=== PATIENT | male | born 1990 | race Two or more races ===

== ENCOUNTER 2022-11-30 13:33 | Emergency (ER) | payer MEDICAID, OTHER ==
[~2022-11-30] VITALS: Ht 162.6 cm; Wt 104.6 kg
[2022-11-30 14:39] LABS: Basophils # (auto) 0 10 ^3/uL (0-0.2); Basophils % (auto) 0.2 % (0.0-2.0); Eosinophils # (auto) 0 10 ^3/uL (0-0.8); Hematocrit 46.1 % (41.0-53.0); Hemoglobin 15.1 g/dL (13.5-17.5); Lymphocytes # (auto) 1.9 10 ^3/uL (0.4-5.4); Lymphocytes % (auto) 18.6 % (10.0-50.0); Mean Corpuscular Hemoglobin 27.5 pg (28.0-32.0); Mean Corpuscular Hgb Conc. 32.8 g/dL (32.0-36.0); Mean Corpuscular Volume 83.9 fL (80.0-100.0); Monocytes # (auto) 0.4 10 ^3/uL (0-1.3); Monocytes % (auto) 4.1 % (0.0-12.0); Neutrophils # (auto) 7.9 10 ^3/uL (1.6-8.6); Neutrophils % (auto) 77.1 % (37.0-80.0); Nucleated Red Blood Cells % 0.2 %; Red Blood Cells 5.49 10^6/uL (4.5-5.90); Red Cell Distribution Width 13.6 % (11.8-14.3); White Blood Cell 10.2 10^3/uL (4.4-10.8)
[2022-11-30 14:49] LABS: Anion Gap 6 (5-15); BUN/Creatinine Ratio 11.3; Blood Alcohol < 3.0 mg/dL (0-5); Blood Urea Nitrogen 11 mg/dL (7-18); Calcium 8.7 mg/dL (8.5-10.1); Carbon Dioxide 26 mmol/L (21-32); Chloride 107 mmol/L (98-107); GFR African American 115 mL/min; GFR Non-African American 95 mL/min; Glucose 174 mg/dL (74-106); Potassium 3.7 mmol/L (3.5-5.1); Sodium 139 mmol/L (136-145)
[2022-11-30 14:50] LABS: Salicylate < 1.7 mg/dL (2.8-20.0)
[2022-11-30 15:06] LABS: Acetaminophen < 2.0 ug/mL (10-30)
[2022-11-30 15:55] LABS: Amphetamine Screen, Urine NEGATIVE (NEGATIVE); Benzodiazephine Screen, Urine NEGATIVE (NEGATIVE); Cannabinoid Screen, Urine NEGATIVE (NEGATIVE); Cocaine Screen, Urine NEGATIVE (NEGATIVE); Opiate Scree,Urine NEGATIVE (NEGATIVE); Phencyclidine Screen, Urine NEGATIVE (NEGATIVE)
[2022-11-30 15:57] LABS: Barbiturate Scree,Urine NEGATIVE (NEGATIVE)
[2022-11-30] MEDS ORDERED: LORazepam 0.5 MG TAB PO ONE (18:00)
[2022-11-30] MEDS ORDERED: risperiDONE 1 MG TAB PO ONE (21:45)
[2022-11-30] MEDS: risperiDONE 1 MG TAB PO SCH (22:27)
[2022-12-01] MEDS: risperiDONE 1 MG TAB PO SCH ×2 (09:50→22:49)
[2022-12-01] MEDS ORDERED: LORazepam 2MG/ML-1ML VIAL IM ONE (18:00)
[2022-12-02] MEDS: risperiDONE 1 MG TAB PO SCH (10:31)
[2022-12-02 14:53] VITALS: BP 113/70
== END 2022-12-02 15:05 ==
LOC: ER 13:33
DX: F20.9 Schizophrenia, unspecified (principal); E78.5 Hyperlipidemia, unspecified; Z20.822 Contact with and (suspected) exposure to COVID-19
CPT/HCPCS: 36415; 80048; 80307; 80320; 80329; 85025; 87426; 96372; 99285; J2060

== ENCOUNTER 2023-01-12 19:05 | Emergency (ER) | payer MEDICAID ==
[~2023-01-12] VITALS: Ht 167.6 cm; Wt 104.0 kg
[2023-01-12 20:09] LABS: Basophils # (auto) 0 10 ^3/uL (0-0.2); Basophils % (auto) 0.2 % (0.0-2.0); Eosinophils # (auto) 0 10 ^3/uL (0-0.8); Hemoglobin 15.2 g/dL (13.5-17.5); Lymphocytes # (auto) 1.9 10 ^3/uL (0.4-5.4); Mean Corpuscular Hemoglobin 28.5 pg (28.0-32.0); Mean Corpuscular Hgb Conc. 34.5 g/dL (32.0-36.0); Mean Corpuscular Volume 82.7 fL (80.0-100.0); Monocytes # (auto) 0.4 10 ^3/uL (0-1.3); Monocytes % (auto) 3.8 % (0.0-12.0); Neutrophils # (auto) 6.8 10 ^3/uL (1.6-8.6); Nucleated Red Blood Cells % 0.3 %; Red Blood Cells 5.33 10^6/uL (4.5-5.90); Red Cell Distribution Width 13.6 % (11.8-14.3); White Blood Cell 9.1 10^3/uL (4.4-10.8)
[2023-01-12 20:29] LABS: Albumin 3.9 g/dL (3.4-5.0); BUN/Creatinine Ratio 14.7; Calcium 9.1 mg/dL (8.5-10.1); Potassium 3.5 mmol/L (3.5-5.1)
[2023-01-12 20:31] LABS: Bilirubin, Total 0.3 mg/dL (0.2-1.0); Total Protein 7.2 g/dL (6.4-8.2)
[2023-01-12 21:28] LABS: Urine Bacteria NONE SEEN /hpf (None Seen); Urine Blood Negative /uL (Negative); Urine Specific Gravity 1.015 (1.001-1.035); Urine WBC <1 /hpf (0 - 3)
[2023-01-12 22:47] LABS: Amphetamine Screen, Urine NEGATIVE (NEGATIVE); Barbiturate Scree,Urine NEGATIVE (NEGATIVE); Benzodiazephine Screen, Urine NEGATIVE (NEGATIVE); Cannabinoid Screen, Urine NEGATIVE (NEGATIVE); Cocaine Screen, Urine NEGATIVE (NEGATIVE); Opiate Scree,Urine NEGATIVE (NEGATIVE); Phencyclidine Screen, Urine NEGATIVE (NEGATIVE)
[2023-01-13] MEDS ORDERED: OLANZapine 5 MG TAB PO ONE (03:45)
[2023-01-13] MEDS ORDERED: LORazepam 2MG/ML-1ML VIAL IM ONE (07:45)
[2023-01-13] MEDS: busPIRone HCL 10 MG TAB PO SCH ×2 (14:03→21:20)
[2023-01-13] MEDS ORDERED: LORazepam 0.5 MG TAB PO ONE (17:45)
[2023-01-13] MEDS: OLANZapine 5 MG TAB PO SCH (21:21)
[2023-01-14] MEDS: busPIRone HCL 10 MG TAB PO SCH ×3 (05:50→22:19)
[2023-01-14] MEDS: SERTRALINE HCL 50 MG TAB PO SCH (06:43)
[2023-01-14] MEDS: OLANZapine 5 MG TAB PO SCH (22:19)
[2023-01-15] MEDS: LORazepam 2MG/ML-1ML VIAL IV ONE ×2 (00:45→00:54)
[2023-01-15] MEDS ORDERED: HALOPERIDOL LACTATE 5 MG/ML INJ VIAL IM ONE (01:45)
[2023-01-15] MEDS ORDERED: LORazepam 2MG/ML-1ML VIAL IM ONE ×3 (03:30→18:45)
[2023-01-15] MEDS: busPIRone HCL 10 MG TAB PO SCH ×3 (09:05→23:16)
[2023-01-15] MEDS: SERTRALINE HCL 50 MG TAB PO SCH (09:06)
[2023-01-15] MEDS: OLANZapine 5 MG TAB PO SCH (23:15)
[2023-01-16 07:55] VITALS: BP 126/74
[2023-01-16] MEDS: SERTRALINE HCL 50 MG TAB PO SCH (09:29)
[2023-01-16] MEDS: busPIRone HCL 10 MG TAB PO SCH ×3 (09:29→22:00)
[2023-01-16] MEDS ORDERED: OLAN20TA PO (21:43)
[2023-01-16] MEDS: OLANZapine 5 MG TAB PO SCH (22:00)
== END 2023-01-17 01:29 | disposition home or self-care (01) ==
LOC: ER 19:11
DX: F20.9 Schizophrenia, unspecified (principal); R94.31 Abnormal electrocardiogram [ECG] [EKG]; Z79.899 Other long term (current) drug therapy
CPT/HCPCS: 36415; 70450; 71045; 80053; 80307; 81001; 84484; 85025; 93005; 96372; 99285; J1630; J2060

== ENCOUNTER 2023-03-16 17:47 | Emergency (ER) | payer MEDICAID ==
[~2023-03-16] VITALS: Ht 177.8 cm; Wt 95.4 kg
[~2023-03-16 17:47] MED LIST: OLAN20TA PO
[2023-03-16 18:54] LABS: Alcohol, Urine < 3.0 mg/dL (0-10); Amphetamine Screen, Urine NEGATIVE (NEGATIVE); Barbiturate Scree,Urine NEGATIVE (NEGATIVE); Benzodiazephine Screen, Urine NEGATIVE (NEGATIVE); Cannabinoid Screen, Urine NEGATIVE (NEGATIVE); Cocaine Screen, Urine NEGATIVE (NEGATIVE); Opiate Scree,Urine NEGATIVE (NEGATIVE); Phencyclidine Screen, Urine NEGATIVE (NEGATIVE)
[2023-03-16 20:02] LABS: Hematocrit 43.1 % (41.0-53.0); Hemoglobin 14.5 g/dL (13.5-17.5); Mean Corpuscular Hemoglobin 28.2 pg (28.0-32.0); Mean Corpuscular Hgb Conc. 33.7 g/dL (32.0-36.0); Mean Corpuscular Volume 83.5 fL (80.0-100.0); Red Blood Cells 5.16 10^6/uL (4.5-5.90); Red Cell Distribution Width 13.5 % (11.8-14.3); White Blood Cell 9.1 10^3/uL (4.4-10.8)
[2023-03-16 20:10] LABS: Anion Gap 4 (5-15); BUN/Creatinine Ratio 16.7 (10.0-20.0); Blood Alcohol < 3.0 mg/dL (0-5); Blood Urea Nitrogen 13 mg/dL (7-18); Calcium 8.9 mg/dL (8.5-10.1); Carbon Dioxide 25 mmol/L (21-32); Chloride 108 mmol/L (98-107); GFR African American 148 mL/min; GFR Non-African American 123 mL/min; Glucose 86 mg/dL (74-106); Potassium 3.7 mmol/L (3.5-5.1); Sodium 137 mmol/L (136-145)
[2023-03-16 20:37] LABS: Basophils % (manual) 0 (0.0-2.0); Blast Cells 0; Eosinophils % (manual) 0 (0-7); Metamyelocytes % 0; Myelocytes % 0; Promyelocytes % 0; Reactive Lymphocytes 0
[2023-03-16 21:01] LABS: Band Neutrophils % (manual) 2; Lymphocytes % (manual) 6 (10.0-50.0); Monocytes % (manual) 14 (0-12)
[2023-03-17] MEDS ORDERED: OLAN5TAB2 PO (07:58)
[2023-03-17 08:00] VITALS: BP 107/63
== END 2023-03-17 08:19 | disposition home or self-care (01) ==
LOC: ER 17:47 → EDBD 17:47 → ER 03-17 08:19
DX: F20.9 Schizophrenia, unspecified (principal); R45.851 Suicidal ideations; F41.9 Anxiety disorder, unspecified; E78.5 Hyperlipidemia, unspecified
CPT/HCPCS: 36415; 80048; 80307; 80320; 85007; 85027